=== PATIENT | male | born 1985 | race Caucasian/White ===

== ENCOUNTER 2017-08-01 09:17 | Emergency (ER) | payer BC ==
[~2017-08-01] VITALS: Ht 180.3 cm; Wt 99.0 kg
[2017-08-01 09:19] VITALS: BP 140/97; PULSE 78; RESP 13; TEMP 98.6; O2SAT 99
--- NOTE | 2017-08-01 09:34 | PD ---
HPI Chief Complaint: Laceration/Skin Injury Time Seen by Provider: 09:32 Travel History International Travel<30 days: No Contact w/Intl Traveler<30days: No Traveled to known affect area: No History of Present Illness HPI 32-year-old male presents to emergency Department with a dog bite to the upper lip. Patient states it was his dog. Patient states the dog is up-to- date on his shots. Bleeding is minimal. Pain is minimal. Patient's last tetanus was 5 years ago. He has no known drug allergies. [facility] Social History Alcohol Use: Yes Tobacco Use: No Substance Use: No Allergies-Medications (Allergen,Severity, Reaction): Coded Allergies: No Known Allergies (Verified Allergy, Unknown, 08/01/17) Reported Meds & Prescriptions Reported Meds & Active Scripts Active No Active Prescriptions or Reported Medications Review of Systems Except as stated in HPI: all other systems reviewed are Neg General / Constitutional: No: Fever Eyes: No: Visual changes HENT: No: Headaches Cardiovascular: No: Chest Pain or Discomfort Respiratory: No: Shortness of Breath Gastrointestinal: No: Abdominal Pain Genitourinary: No: Dysuria Musculoskeletal: No: Pain Skin: Positive Lesions (see history of present illness.), No Rash Neurologic: No: Weakness Psychiatric: No: Depression Endocrine: No: Polydipsia Hematologic/Lymphatic: No: Easy Bruising Physical Exam Narrative GENERAL: Patient appears in no acute distress. SKIN: Warm and dry. Normal color. Normal turgor. Patient has superficial abrasions to the left cheek. Patient has 2 lacerations to the upper lip, one to the left of midline and crosses the vermilion border, the one to the right of midline does not. They are not through and through. HEAD: Atraumatic. Normocephalic. Nontender. EYES: Pupils equal and round. No scleral icterus. No injection or drainage. ENT: No nasal bleeding or discharge. Mucous membranes pink and moist. No dental or gum injury noted. No buccal membrane laceration on the inner surface of the lips or cheek. NECK: Trachea midline. Supple and nontender. CARDIOVASCULAR: Regular rate and rhythm. RESPIRATORY: No accessory muscle use. Clear to auscultation. Breath sounds equal bilaterally. MUSCULOSKELETAL: Extremities without clubbing, cyanosis, or edema. No obvious deformities. NEUROLOGICAL: Awake and alert. No obvious cranial nerve deficits. Motor grossly within normal limits. Five out of 5 muscle strength in the arms and legs. Normal speech. PSYCHIATRIC: Appropriate mood and affect; insight and judgment normal. Data Data Last Documented VS Vital Signs Date Time Temp Pulse Resp B/P (MAP) Pulse Ox O2 Delivery O2 Flow Rate FiO2 08/01/17 09:19 98.6 78 13 140/97 (111) 99 Orders Orders Lidocai-Epi 2%-1:100,000 Inj (Xylocaine- (08/01/17 09:45) Lidocai-Epi 2%-1:100,000 Inj (Xylocaine- (08/01/17 09:39) MDM Medical Decision Making Medical Screen Exam Complete: Yes Emergency Medical Condition: Yes Differential Diagnosis Dog bite. Abrasions. Facial laceration. Lip laceration Narrative Course Lacerations are repaired. See procedure note. Tetanus is up-to-date. Antibiotics or not felt warranted based on the patient's history and physical. Wound care is discussed with the patient Sutures to be removed in 1 week. Follow-up sooner as needed. Procedures Procedure Narrative LACERATION #1 LOCATION: Left upper lip LENGTH: V-shaped, crossing vermilion border, total 1.5 cm NUMBER OF STITCHES/KELL: 6 simple interrupted REPAIR: The area of the laceration was prepped with Betadine and sterilely draped. The laceration was infiltrated with 2 mL 2% lidocaine with epi. The wound was copiously irrigated and explored without evidence of foreign body, tendon injury or neurovascular injury. The wound was closed using 6-0 Prolene. This was a [-] layer repair. The patient was advised to keep the wound clean and dry. Patient tolerated the procedure well. LACERATION LOCATION: Right upper lip LENGTH: 0.5 cm. Does not cross vermilion border. NUMBER OF STITCHES/KELL: 2 simple interrupted REPAIR: The area of the laceration was prepped with Betadine and sterilely draped. The laceration was infiltrated with 1.5 mL 2% lidocaine with epi. The wound was copiously irrigated and explored without evidence of foreign body, tendon injury or neurovascular injury. The wound was closed using 6-0 Prolene. This was a single layer repair. The patient was advised to keep the wound clean and dry. Patient tolerated the procedure well. Diagnosis Primary Impression: Dog bite of face Qualified Codes: S01.85XA - Open bite of other part of head, initial encounter ; W54.0XXA - Bitten by dog, initial encounter Additional Impression: Laceration of lip without complication Qualified Codes: S01.511A - Laceration without foreign body of lip, initial encounter Patient Instructions: Animal Bite (ED), Facial Laceration (ED), General Instructions Additional Instructions: Tetanus is up-to-date. Antibiotics or not felt warranted based on the patient's history and physical. Wound care is discussed with the patient Sutures to be removed in 1 week. Follow-up sooner as needed. Med/Other Pt SpecificInfo: Wound Care Scripts No Active Prescriptions or Reported Meds Disposition: 01 DISCHARGE HOME Condition: Stable Emir Lucio Aug 01, 2017 09:34
[2017-08-01] MEDS ORDERED: LIDOCAINE 2%/EPINEPHrine 1:100,000 50ML MDV ONE (09:39)
[2017-08-01] MEDS ORDERED: LIDOCAINE 2%/EPINEPHrine 1:100,000 20ML MDV NERV BLOCK ONE (09:45)
== END 2017-08-01 10:54 | disposition home or self-care (01) ==
LOC: NEPK 09:17
DX: S01.511A Laceration without foreign body of lip, initial encounter (principal); W54.0XXA Bitten by dog, initial encounter
CPT/HCPCS: 12011